=== PATIENT | male | born 1970 | race American Indian/Alaskan Native ===

== ENCOUNTER 2017-10-28 07:13 | Emergency (ER) | payer MEDICAID ==
[2017-10-28 07:16] VITALS: BMI 23.6
[2017-10-28 07:18] VITALS: TEMP 98.7
[2017-10-28 08:31] VITALS: BP 145/92; PULSE 88; RESP 16; O2SAT 100
--- NOTE | 2017-10-28 08:33 | ED PDOC ---
HPI: Back Time Seen by Provider: 10/28/17 08:20 Chief Complaint (Nursing): Back Pain Chief Complaint (Provider): Back Pain History Per: Patient History/Exam Limitations: no limitations Onset/Duration Of Symptoms: Hrs (x 2) Current Symptoms Are (Timing): Still Present Additional Complaint(s): 47 year old male who was brought in via EMS to the ED complaining of back pain, onset minutes [employer]. Patient reports he blacked out after doing heroin and drinking alcohol last night. He tripped and fell in his bathroom and now has pain all over back. PMD: none provided Past Medical History Reviewed: Historical Data, Nursing Documentation, Vital Signs Vital Signs: Last Vital Signs Temp 98.7 F 10/28/17 07:17 Pulse 88 10/28/17 08:30 Resp 16 10/28/17 08:30 BP 145/92 H 10/28/17 08:30 Pulse Ox 100 10/28/17 08:30 - Medical History PMH: Hypercholesterolemia Denies: Diabetes, Hepatitis, HIV, HTN, Seizures, Sexually Transmitted Disease - Family History Family History: States: Unknown Family Hx - Home Medications Home Medications: Ambulatory Orders Medication Instructions Recorded Ibuprofen [Motrin Tab] 1 tab PO Q6 PRN #15 tab 11/05/16 Ibuprofen [Motrin] 600 mg PO Q6 PRN #30 tab 10/28/17 - Allergies Allergies/Adverse Reactions: Allergies Allergy/AdvReac Type Severity Reaction Status Date / Time No Known Allergies Allergy Verified 11/05/16 20:37 Review of Systems ROS Statement: Except As Marked, All Systems Reviewed And Found Negative Genitourinary Male: Negative for: Incontinence Neurological: Negative for: Weakness, Numbness, Other (tremors) Physical Exam - Reviewed Nursing Documentation Reviewed: Yes Vital Signs Reviewed: Yes - Physical Exam Appears: Positive for: Non-toxic, No Acute Distress Head Exam: Positive for: ATRAUMATIC, NORMOCEPHALIC Skin: Positive for: Normal Color, Warm, Dry Eye Exam: Positive for: Normal appearance, PERRL Neck: Positive for: Normal, Painless ROM, Supple Cardiovascular/Chest: Positive for: Regular Rate, Rhythm. Negative for: Murmur Respiratory: Positive for: Normal Breath Sounds. Negative for: Wheezing Back: Positive for: Other (diffuse tenderness across lower back) Extremity: Positive for: Normal ROM ( negative leg raise test) Neurologic/Psych: Positive for: Alert, Oriented - ECG O2 Sat by Pulse Oximetry: 100 (RA) Pulse Ox Interpretation: Normal Medical Decision Making Medical Decision Making: Time: 08:17 Initial Plan: Back pain s/p fall r/o fx --Thoracic Spine (RAD) --LS Spine (RAD) --Ibuprofen 800 mg 10:00am - Patient is refusing xrays. He understands the risks of possible fracture and still is refusing. He has capacity to make decisions. Is AAOx3. No slurred speech No ataxia. He wants to go home. He states he has no back pain anymore. He is walking with no pain or concerns. He will follow up with his PMD. Scribe Attestation: Documented by Rayna Herron, acting as a scribe for Hernán Martinez DO Provider Scribe Attestation: All medical record entries made by the Scribe were at my direction and personally dictated by me. I have reviewed the chart and agree that the record accurately reflects my personal performance of the history, physical exam, medical decision making, and the department course for this patient. I have also personally directed, reviewed, and agree with the discharge instructions and disposition. Disposition - Clinical Impression Clinical Impression: Back pain, Low back pain - Disposition Disposition: Routine/Home Disposition Time: 10:00 Condition: IMPROVED Additional Instructions: Mr. Mendez, thank you for letting us take care of you today. Your provider was Dr. Martinez. You were treated for Back Pain. The emergency medical care you received today was directed at your acute symptoms. If you were prescribed any medication, please fill it and take as directed. It may take several days for your symptoms to resolve. Return to the Emergency Department if your symptoms worsen, do not improve, or if you have any other problems. Please contact your doctor or call one of the physicians/clinics you have been referred to that are listed on the Patient Visit Information form that is included in your discharge packet. Bring any paperwork you were given at discharge with you along with any medications you are taking to your follow up visit. Our treatment cannot replace ongoing medical care by a primary care provider (PCP) outside of the emergency department. Thank you for allowing the [facility] team to be part of your care today. If you had an X-Ray or CT scan: A Radiologist will review the ED reading if any change in treatment is needed we will contact you. If you had a blood, urine, or wound culture: It will take several days for the results, if any change in treatment is needed we will contact you. If you had an STI test: It will take 48 hours for the results. Please call after 1 week if you have not heard back. Prescriptions: Ibuprofen [Motrin] 600 mg PO Q6 PRN #30 tab PRN Reason: Pain, Moderate (4-7) Instructions: Back Pain (ED) Forms: Mine (Latvian)
== END 2017-10-28 10:07 | disposition home or self-care (01) ==
LOC: H.ER 07:13
DX: M54.9 Dorsalgia, unspecified (principal); W01.0XXA Fall on same level from slipping, tripping and stumbling without subsequent striking against object, initial encounter; Y92.89 Other specified places as the place of occurrence of the external cause; E78.00 Pure hypercholesterolemia, unspecified; F11.10 Opioid abuse, uncomplicated

== ENCOUNTER 2018-02-21 02:01 | Emergency (ER) | payer MEDICAID ==
[2018-02-21 02:01] VITALS: BMI 23.6
[2018-02-21 04:24] LABS: BASO # 0.1 K/uL (0.0-0.2); BASO % 0.8 % (0.0-2.0); EOS # 0.1 K/uL (0.0-0.7); EOS % 0.8 % (0.0-4.0); HEMOGLOBIN 11.7 g/dL (12.0-18.0); LYMPH # 1.4 K/uL (1.0-4.3); LYMPH % 17.3 % (20.0-40.0); MEAN CELL VOLUME 92.9 fl (80.0-94.0); MEAN CORPUSCULAR HEMOGLOBIN 30.9 pg (27.0-31.0); MEAN CORPUSCULAR HGB CONC 33.2 g/dL (33.0-37.0); MEAN PLATELET VOLUME 6.6 fl (7.2-11.7); MONO # 0.9 K/uL (0.0-0.8); MONO % 10.7 % (0.0-10.0); NEUT # 5.9 K/uL (1.8-7.0); NEUT % 70.4 % (50.0-75.0); NRBC % 0.2 % (0.0-0.0); RBC 3.79 Mil/uL (4.40-5.90); WHITE BLOOD COUNT 8.3 K/uL (4.8-10.8)
[2018-02-21 04:34] LABS: ACETAMINOPHEN < 10.0 ug/ml (10.0-30.0); SALICYLATE < 1.0 mg/dl
[2018-02-21 04:39] LABS: BLOOD UREA NITROGEN 27 mg/dl (9-20); CALCIUM 8.1 mg/dL (8.4-10.2); GFR AFRICAN-AMERICAN > 60; GFR NON-AFRICAN AMERICAN > 60
[2018-02-21 05:16] LABS: BARBITURATES, UR NEGATIVE (NEGATIVE); BENZODIAZEPINES, UR NEGATIVE (NEGATIVE); OPIATES, UR POSITIVE (NEGATIVE); PHENCYCLIDINE, UR NEGATIVE (NEGATIVE)
--- NOTE | 2018-02-21 06:27 | ED PDOC ---
HPI: Psych/Substance Abuse Time Seen by Provider: 02/21/18 02:39 Chief Complaint (Nursing): Substance Abuse ED Caveat: Acuity of Condition History Per: Patient History/Exam Limitations: intoxication Current Symptoms Are (Timing): Still Present Suicide/Self Injury Attempted (Context): None Additional Complaint(s): Pt. with history of drug and alcohol abuse presenting with alcohol abuse, states he did not drink alcohol today or do drugs. Also complaining of swollen testicles for over 6 months, but able to urinate freely. Denies chest pain, shortness of breath. Patient verbally abusive to staff, demanding pancakes and other food objects. Past Medical History Reviewed: Historical Data, Nursing Documentation, Vital Signs Vital Signs: Last Vital Signs Temp 98.3 F 02/21/18 02:11 Pulse 102 H 02/21/18 04:03 Resp 16 02/21/18 04:03 BP 159/82 H 02/21/18 04:03 Pulse Ox 100 02/21/18 04:03 - Medical History PMH: Hypercholesterolemia Denies: Diabetes, Hepatitis, HIV, HTN, Seizures, Sexually Transmitted Disease - Family History Family History: States: Unknown Family Hx - Home Medications Home Medications: Ambulatory Orders Medication Instructions Recorded Ibuprofen [Motrin Tab] 1 tab PO Q6 PRN #15 tab 11/05/16 Ibuprofen [Motrin] 600 mg PO Q6 PRN #30 tab 10/28/17 - Allergies Allergies/Adverse Reactions: Allergies Allergy/AdvReac Type Severity Reaction Status Date / Time No Known Allergies Allergy Verified 02/21/18 02:11 Review of Systems ROS Statement: Except As Marked, All Systems Reviewed And Found Negative Genitourinary Male: Positive for: Other (scrotal swelling) Physical Exam - Reviewed Nursing Documentation Reviewed: Yes Vital Signs Reviewed: Yes - Physical Exam Appears: Positive for: Non-toxic, No Acute Distress. Negative for: Well ( INtoxicated appearing) Head Exam: Positive for: ATRAUMATIC, NORMAL INSPECTION, NORMOCEPHALIC Skin: Positive for: Normal Color, Warm, DRY Eye Exam: Positive for: EOMI, Normal appearance, PERRL ENT: Positive for: Normal ENT Inspection Neck: Positive for: Normal, Painless ROM Cardiovascular/Chest: Positive for: Regular Rate, Rhythm Respiratory: Positive for: CNT, Normal Breath Sounds Gastrointestinal/Abdominal: Positive for: Normal Exam, Soft Male Genital Exam: Positive for: other (scrotal swelling, appears chronic) Back: Positive for: Normal Inspection Extremity: Positive for: Normal ROM Neurologic/Psych: Positive for: Alert, Oriented - Laboratory Results Result Diagrams: 02/21/18 04:21 02/21/18 04:21 - ECG O2 Sat by Pulse Oximetry: 100 Pulse Ox Interpretation: Normal Medical Decision Making Medical Decision Making: Patient with drug abuse and alcohol abuse Patient sobered up while in Ed Vitals normalized No other interventions necessary at this time Encouraged drug and alcohol reform habits Patient well appearing, stable, steady gait upon discharge. Disposition - Clinical Impression Clinical Impression: Drug abuse, Alcohol abuse - Disposition Referrals: [facility] [Outside] Disposition: Routine/Home Disposition Time: 06:30 Condition: STABLE Instructions: Drug Abuse and Drug Addiction (DC), Alcohol Abuse and Alcoholism (DC)
[2018-02-21 07:59] VITALS: BP 159/84; PULSE 103; RESP 18; TEMP 98.5; O2SAT 99
== END 2018-02-21 07:59 | disposition home or self-care (01) ==
LOC: H.ER 02:01
DX: F10.10 Alcohol abuse, uncomplicated (principal); F19.10 Other psychoactive substance abuse, uncomplicated; E78.00 Pure hypercholesterolemia, unspecified